=== PATIENT | female | born 1960 | race Caucasian/White ===

== ENCOUNTER 2023-11-16 11:13 | Outpatient (CLI) | payer BC, SELFPAY | END 2023-11-16 11:14 | disposition home or self-care (01) | LOC: AMB 11-19 06:00 | PROVIDERS: Visit Provider Emergency Medicine | DX: S89.91XA Unspecified injury of right lower leg, initial encounter (principal); W18.30XA Fall on same level, unspecified, initial encounter; Y92.000 Kitchen of unspecified non-institutional (private) residence as the place of occurrence of the external cause | CPT/HCPCS: A0998 ==

== ENCOUNTER 2024-04-06 13:00 | Outpatient (RCR) | payer OTHER, BC, SELFPAY | END 2024-08-04 23:59 | disposition home or self-care (01) | PROVIDERS: Visit Provider Orthopaedic Surgery | DX: Z98.890 Other specified postprocedural states (principal); Z87.81 Personal history of (healed) traumatic fracture; M25.561 Pain in right knee; M25.661 Stiffness of right knee, not elsewhere classified; Z51.89 Encounter for other specified aftercare | CPT/HCPCS: 97110; 97112; 97116; 97140; 97161; 97164; 97750 ==

== ENCOUNTER 2025-04-28 19:26 | Inpatient (IN) | payer BC, MEDICARE, SELFPAY ==
--- OUTSIDE RECORDS SUMMARY | 2025-04-28 19:28 | XMS_ITS | Clinical Summary ---
Author Organization [facility] Address [address] [place] [id number] Care Team Providers Care Packaging Clerk Name Role Phone Ashish Cordon MD Primary Care Provider Allergies Active Allergy Reactions Criticality Noted Date Comments Egg *Unknown 09/08/2023 Medications durable medical equipment (DME)Indications: Closed nondisplaced comminuted fracture of right patella, initial encounter X-ROM POST-OP KNEE BRACE 1 Each 4 Active CaneIndications:S /P ORIF (open reduction internal fixation) fracture Narrow Base Quad Cane for home use. For 3-4 weeks. 1 Each 4 Active celecoxib (CeleBREX) 200 mg capsuleIndication s:S/P ORIF (open reduction internal fixation) fracture Take 1 Capsule (200 mg) by mouth two times daily with meals. 60 Capsule 2 4 Active durable medical equipment (DME)Indications: S/P ORIF (open reduction internal fixation) fracture Knee sleeve right knee 1 Each 4 Active durable medical equipment (DME)Indications: S/P ORIF (open reduction internal fixation) fracture Michael-Pull Lite, RT, XXL 1 Each 4 Active Active Problems Problem Noted Date Diagnosed Date Tobacco abuse 09/09/2023 Closed nondisplaced comminuted fracture of right patella 09/07/2023 Injury of right knee 09/07/2023 Immunizations Immunization Administration Dates Next Due COVID-19 vaccine (Access Closure 30mcg/0.3mL) P F, MDV 08/19/2020,07/29/2020 Influenza, IIV4 03/30/2021 Influenza, IIV4 (=>6mos) MDV 03/31/2020 Zoster (Shingrix-RZV, recombinant) 10/28/2023 Family History Medical History Relation Name Comments Psychiatric illness Father depressi on Anesthesia Problem No Family History Relation Name Status Comments Father Social History Tobacco Use Types Packs/Day Years Used Date Smoking Tobacco: Some Days Cigarettes 0.2 10 Smokeless Tobacco: Never Tobacco Cessation:Ready to Q uit: No; Counseling Given: No Alcohol Use Standard Drinks/Week Comments Yes 0 (1 standard drink = 0.6 oz pur e alcohol) 4-5/week Social Connections Answer Date Recorded Do you often feel lonely or isolated from those around you? 0 10/28/2023 Financial Resource Strain Answer Date R ecorded Difficulty of Paying Living Expenses 3 10/28/2023 Difficulty of Paying Living Expenses Not on file 10/28/2023 Food Insecurity Answer Date Recorded Do you worry your food will run out before you are able to buy more? 1 10/28/2023 Transportation Needs Answer Date Record ed Does lack of transportation keep you from medica l appointments? 1 10/28/2023 Does lack of transportation keep you from work, meetings or getting things that you need? 1 10/28/2023 Housing Stability Answer Date Recorded What is your housing situation today? 1 10/28/2023 Utilities Answer Date Recorded Do you have trouble paying f or utilities (for example, heat, electricity, water, phone)? 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 Gender Identity Not on file Sexual Orientation Not on file Obstetrics History Para Term AB IAB SAB Ectopic Multiple Livin g Live Births 4 4 Date Outcome GA Total Labor Labor/2nd/3rd Weight Sex Type Anes PTL Gayatri A1 A5 Name Clin Para Para Para Para Last Filed Vital Signs Vital Sign Reading Time Taken Comments Blood Pressure 113/76 01/30/2024 10:23 AM CDT Pulse 94 01/30/2024 10:23 AM CDT Temperature 37.3 C (99.2 F) 09/13/2023 1:11 PM CDT Respiratory Rate 18 09/13/2023 2:30 PM CDT Oxygen Saturation 99% 01/30/2024 10:23 AM CDT Inhaled Oxygen Concentration - - Weight 81.2 kg (179 lb) 01/30/2024 10:23 AM CDT Height 172.7 cm (5' 8) 09/13/2023 9:36 AM CDT Body Mass Index 27.22 09/13/2023 9:36 AM CDT Plan of Treatment Health Maintenance Due Date Last Done Comments Tetanus booster 1969 Depression screening for age 12+ 1970 Hepatitis C screening for ag e 18-79 1976 Pneumococcal series for age 50+ (1 of 2 - PCV) 1977 Colonoscopy through age 75 2003 Lipids for age 45-75 2003 Mammogram for age 45-75 2003 DEXA/DXA scan for age 65+ 2023 Zoster (shingles) series for age 50+ (2 of 2) 12/23/2023 10/28/2023 BMI (ht and wt on same day) for age 18+ 09/08/2024 09/09/2023, 09/30/2016 Influenza Vaccine (#1) 2025 , 03/31/2020 RSV vaccine for adults or (1 - 1-dose 75+ series) 2033 Hepatitis B series for 19+ Aged Out N o longer eligible based on patient's age to complete this topic Medical Devices Implanted Type Area Retaining Room Cutter Device Identifier Shelf Expiration Date Model / Serial / Lot Patella Sutureplate Ii, Star 3mm Implanted:Qty: 1 on 09/13/2023 by Ramo Huerta MD at [facility] Right: Patella 02/24/2026 [id number] S / / [id number] Screw Bone 3.0x12mm Titnm Emi Compression Kreulock - [id number] Implanted:Qty: 2 on 09/13/2023 by Ramo Huerta MD at [facility] Right: Patella [employer] [id number] -12 / / Screw Bone 3.0x14mm Titnm Emi Compression Kreulock - [id number] Implanted:Qty: 4 on 09/13/2023 by Ramo Huerta MD at [facility] Right: Patella [employer] [id number]-[id number] -14 / / Screw Bone 3.0x16mm Titnm Emi Chel Lilly - [id number] Implanted:Qty: 3 on 09/13/2023 by Ramo Huerta MD at [facility] Right: Patella [employer] [id number] -16 / / Insurance [facility] Advance Directives * Full Code (Latest Code Status on File) Date Activated Date Inactivated Comments 09/13/2023 11:30 AM 09/13/2023 7:00 PM Question Answer Comments Code Status Discussion: Reviewed Preferences Care Teams Packaging Clerk Relationship Specialty Start Date End Date Ashish Cordon MD [address] [place] [address] PCP - General Family Practice 09/09/23
[2025-04-28 19:34] VITALS: BP 145/98; PULSE 86; RESP 16; TEMP 37; O2SAT 95; BMI 27.4
--- NOTE | 2025-04-28 19:54 | CRLHL7_ITS ---
For Patients: As a result of the Century Cures Act, medical imaging exams and procedure reports are released immediately into your electronic medical record. You may view this report before your referring provider. If you have questions, please contact your health care provider. INDICATION: Fall TECHNIQUE: Single view pelvis with AP and cross-table lateral views of the right hip. COMPARISONS: None available. FINDINGS: Femoral heads are well-seated in the acetabula. There is a subcapital femoral neck fracture of the right hip with probably high-riding distal femoral fracture component. Mild degenerative changes of the bilateral femoral acetabular joints. Right-sided soft tissue swelling. IMPRESSION: Subcapital femoral neck fracture of the right hip. Dictated by Lex Torres MD @ 04/28/2025 8:46:50 PM (Electronically Signed)
--- NOTE | 2025-04-28 20:07 | ED_ITS ---
HPI - General Adult General Chief complaint: Hip Injury/Pain Stated complaint: Right hip injury Time Seen by Provider: 04/28/25 19:50 Source: patient Mode of arrival: ambulatory Limitations: no limitations History of Present Illness HPI narrative: 65-year-old female coming in today complaining of right hip pain. Patient states that she was turning and some how she fell. Patient can not quite remember what happened but states that she could not walk afterwards. She states that I pulled a muscle?. Patient states that she was drinking today. Drinks during football games. Denies daily alcohol use. Takes no medications, is not on any blood thinners. Denies hitting her head or losing consciousness. States that she lives with her sister and another family member. Related Data Allergies Allergy/AdvReac Type Severity Reaction Status Date / Time No Known Drug Allergies Allergy Verified 04/28/25 19:37 Review of Systems Status of ROS: Reports: 10 or more systems reviewed and unremarkable except as noted in History and below Exam Narrative: Exam Narrative: Well-nourished well-developed patient in no acute distress. Acutely intoxicated. Patient smells heavily of alcohol, speech is slurred. Alert and oriented x3. Poor historian given her current state. Patient speaks in full sentences without needing to catch their breath. GCS is 15. Patient is speaking and breathing without difficulty. There is no obvious significant bleeding noted. HEENT: Normocephalic atraumatic. Pupils are equally round reactive to light. Extraocular muscles are intact. Conjunctivae are moist without any icterus noted. Moist mucous membranes. Posterior pharynx is normal. No trauma noted to the inside of the mouth. Neck is soft. Cardiovascular: Heart is regular rate and rhythm S1 and S2 are present without any murmurs. Lungs: Clear to auscultation bilaterally no wheezes rhonchi or rales are appreciated. Patient takes deep breaths without any discomfort. Patient has no tenderness to palpation of the anterior, lateral posterior chest wall. Abdomen: Soft and nontender nondistended with normal bowel sounds. Extremities: Bilateral lower extremities are without edema. Normal DP and PT pulses. Patient has tenderness over the anterior upper thigh. She does not lift that leg off the bed. Skin: Well perfused without any obvious rashes. Back: Normal appearance. Patient has no tenderness to palpation at the cervical, thoracic or lumbar spine. Patient has full range of motion at the neck with flexion, extension, side way bending and rotation without pain. Const: Vital Signs, click to edit/add: Vital Signs - 24 hr 04/28/25 19:34 Temperature 98.6 F Pulse Rate [Right Pulse Oximeter] 86 Respiratory Rate 16 Blood Pressure [Ri ght Upper Arm] 145/98 H Pulse Oximetry 95 Oxygen Delivery Me thod Room Air Course Course ED Course: Hip x-ray, read by me, shows a femoral neck fracture. Consulted with Alanis Powell, orthopedics, who is in agreement with admission and surgical management tomorrow. Discussed with Dr. Magana who accepts the patient for admission. Had a conversation with the patient's older sister who states that the patient drinks every weekend at least if not also sometimes during the week. Patient also smokes a pack of cigarettes every 4 days or so. I did ask the patient if she wanted a nicotine patch and she declined. Vital Signs Vital signs: Initial Vital Signs Temperature 98.6 F 04/28/25 19:34 Temperature Source Temporal Artery Scan 04/28/25 19:34 Pulse Rate 86 04/28/25 19:34 Pulse Rhythm Regular 04/28/25 19:34 Pulse Strength 3+ Normal 04/28/25 19:34 Respiratory Rate 16 04/28/25 19:34 Blood Pressure 145/98 H 04/28/25 19:34 Blood Pressure Mean 113 H 04/28/25 19:34 Blood Pressure Position Sitting 04/28/25 19:34 Pulse Oximetry 95 04/28/25 19:34 Oxygen Delivery Method Room Air 04/28/25 19:34 Vital Signs Temperature 98.6 F 04/28/25 19:34 Pulse Rate 86 04/28/25 19:34 Respiratory Rate 16 04/28/25 19:34 Blood Pressure 145/98 H 04/28/25 19:34 Pulse Oximetry 95 04/28/25 19:34 Oxygen Delivery Method Room Air 04/28/25 19:34 Temperature 98.6 F 04/28/25 19:34 Pulse Rate 86 04/28/25 19:34 Respiratory Rate 16 04/28/25 19:34 Blood Pressure 145/98 H 04/28/25 19:34 Pulse Oximetry 95 04/28/25 19:34 Oxygen Delivery Method Room Air 04/28/25 19:34 Medical Decision Making MDM Narrative Medical decision making narrative: 65-year-old female with probable chronic alcohol use disorder, presenting with a femoral neck fracture. Patient will be admitted for further management Imaging Data X-ray hip: Attestation: I have reviewed the pertinent imaging results. Radiologist's impression: TECHNIQUE: Single view pelvis with AP and cross-table lateral views of the right hip. COMPARISONS: None available. FINDINGS: Femoral heads are well-seated in the acetabula. There is a subcapital femoral neck fracture of the right hip with probably high- riding distal femoral fracture component. Mild degenerative changes of the bilateral femoral acetabular joints. Right-sided soft tissue swelling. IMPRESSION: Subcapital femoral neck fracture of the right hip. Discharge Plan Discharge Clinical Impression: Femoral neck fracture, Alcohol use disorder Patient Disposition: Admitted As Inpatient Condition: Stable
--- NOTE | 2025-04-28 20:38 | CRLHL7_ITS ---
For Patients: As a result of the Century Cures Act, medical imaging exams and procedure reports are released immediately into your electronic medical record. You may view this report before your referring provider. If you have questions, please contact your health care provider. INDICATION: Fall. TECHNIQUE: Chest portable AP supine. FINDINGS: Were allowing for the AP technique, the heart is normal in size. There is no pulmonary contusion or pneumothorax. The lungs are clear. The pulmonary vasculature and pleural surfaces appear normal. The bony thorax appears intact. IMPRESSION: Negative study. Dictated by Gabriel Fletcher MD @ 04/28/2025 9:04:55 PM (Electronically Signed)
[2025-04-28 21:19] VITALS: BP 130/87; PULSE 83; RESP 18; TEMP 36.9; O2SAT 94
[2025-04-28 21:22] LABS: Hematocrit* 42.9 % (33.0-51.0); Hemoglobin* 14.4 gm/dL (12.0-16.0); Immature Granulocytes Pct Auto 0.4 %; Mean Corpuscular HGB Conc 34 gm/dL (32-36); Mean Corpuscular Hemoglobin 38 pg (26-34); Mean Corpuscular Volume 113 fL (80-100); RDW Coefficient of Variation % 13.7 % (11.5-15.5); Red Blood Count* 3.80 m/uL (4.00-5.20); White Blood Count* 18.24 K/uL (4.50-11.00)
[2025-04-28 21:25] VITALS: BP 136/88; PULSE 78; RESP 18; TEMP 36.7; O2SAT 90
[2025-04-28 21:25] LABS: Immature Granulocytes Abs Auto 0.10 K/uL (0.00-0.30); Lymphocytes Absolute Auto 2.10 K/uL (0.90-2.90); Slide Review Reflex No
[2025-04-28 21:34] LABS: Albumin* 4.1 g/dL (3.3-5.0); Chloride* 103 mmol/L (96-114); Sodium* 140 mmol/L (135-149)
[2025-04-28 21:35] LABS: Potassium* 5.7 mmol/L (3.6-5.1)
[2025-04-28 21:37] LABS: Alanine Aminotransferase* 14 U/L (4-35); Alkaline Phosphatase* 82 U/L (40-150); Anion Gap 6 mEq/L (7-15); Aspartate Amino Transferase* 50 U/L (12-35); Bilirubin Direct* 0.3 mg/dL (0.0-0.5); Bilirubin Total* 0.3 mg/dL (0.1-1.5); Blood Urea Nitrogen* 4 mg/dL (7-30); Calcium* 8.8 mg/dL (8.4-10.6); Carbon Dioxide* 31 mmol/L (20-32); Creatinine* 0.6 mg/dL (0.5-1.5); Est. Creatinine Clearance* 55.07; Estimated Glomerular Filt Rate 98 ml/min; Glucose* 127 mg/dL (60-115); Total Protein* 7.2 g/dL (6.0-8.3)
[2025-04-28 21:45] LABS: Ethanol* 0.28 % (0.01-0.03)
--- NOTE | 2025-04-28 21:49 | PM.IMHP1 ---
Assessment and Plan Assessment and plan (1) Femoral neck fracture: Problem comment: - 04/28/2025: Right subcapital femoral neck fracture status post fall from standing position, suggesting underlying osteoporosis - emergency department physician spoke with orthopedic surgery team who indicates they will plan on bringing her to the operating room on 04/29/2025 if the patient is ready for surgery at that time - meanwhile will initiate analgesics and antiemetics p.r.n., NPO after midnight and treat with IV fluids, and await orthopedic surgery consultation - PT and OT consultation. Anticipate patient will need TCU services subsequent to hospitalization. As such have asked social media executive to assist with discharge disposition planning in addition to helping with the alcohol use disorder. Status: Acute (2) Alcohol intoxication: Problem comment: - 04/28/2025: Blood alcohol level 0.28 with patient coherent and talking suggesting tolerance and underlying alcohol use disorder - patient denies history of alcohol withdrawal symptoms, but family members believe the patient does have alcohol withdrawal symptoms that she self medicates with alcohol. - in-hospital will monitor and employ CIWA protocol as indicated, give a single dose of phenobarbital 260 mg IV, initiate gabapentin 300 mg p.o. b.i.d. to lower risk of alcohol withdrawal, initiate multivitamin, folate, thiamin Status: Acute (3) Alcohol use disorder: Problem comment: - 04/28/2025: Initiated discussion with patient regarding this diagnosis. Indicated that like many illnesses she did not cause herself to have this illness, but she obviously does suffer from this illness, and she needs to be the 1 to decide that she wants to further assess and treat this and manage this. I also indicated that we do not have a cure for this but we do have means of helping her help herself if she so desires. - social media executive consultation to assist with recommendations for assessment and treatment Status: Acute (4) Osteoporosis: Problem comment: - 04/28/2025: This is a presumptive diagnosis given that she fell from the standing position and sustained a major fracture to her hip. In-hospital will initiate intranasal calcitonin 200 IU alternating nostrils every other day for a total of 1 month only. Thereafter she will need to have outpatient follow-up with her primary care physician for additional diagnostic and interventional effort considerations. Status: Acute (5) Constipation: Problem comment: - 04/28/2025: Will initiate senna 1 tab p.o. b.i.d. in-hospital and monitor and adjust as warranted Status: Acute (6) Tobacco use disorder: Problem comment: - 04/28/2025: In-hospital will initiate nicotine transdermal patch therapy Status: Acute Plan 1. I reviewed my impression, plans, recommendations with the patient 2. I reviewed the same with the patient's sister, with the patient's permission 3. Answered their questions to their satisfaction 4. They are agreeable with above stated plans and recommendations 5. They understand that depending how the patient does overnight she may or may not be ready for surgery tomorrow Total Time Spent Total Time Spent: 80 minutes Hospitalist- H&P: HPI History of Present Illness Date Seen: 04/28/25 Chief complaint: Right hip injury Narrative: Hoda Blackmon is a 65 year old woman presents to the emergency department this afternoon at the behest of her sister after the patient experience right hip pain status post fall from standing state. Patient simply wanted to have help to get into her bed where she could rest. Her sister refused and said she had come in for assessment and finally the patient concurred. The patient binge drinks every weekend. 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 She claims she does not have school tomorrow, 04/29/2025, and thus she was drinking today as well. On weekends she might drink 4-5 glasses per day of vodka 7 and during the week she might drink a total of 10 glasses at most. Patient was watching a football game on television today and drinking alcohol. She stepped outside to smoke a cigarette. After smoking her cigarette she was pivoting to walk back in the house when her legs suddenly gave out and she fell to the ground. She felt the pain in her hip and was unable to bear weight although she tried to. The she dragged herself into the house. Later her sister came in she asked her sister to help her get to bed. This is when the sister refused and said she was going to bring her to the hospital emergency department. Review of Systems Status of ROS: Reports: 10 or more systems reviewed and unremarkable except as noted in History and below Narrative: No recent trauma, injury, travel. No recent fevers, rigors, diaphoresis. No recent illness. No recent blood loss of any sort. Does not take any medications prescribed or non-prescribed on a regular basis. Rarely takes Advil for aches and pains. Fractured her right patella over a year ago after a fall. Has been using more Advil off and on since then. Smokes 1-2 packs of cigarettes per week. Alcohol consumption as specified above. Denies use of any other street or recreational drugs. Since fracture of her right patella she believes she has lost maybe 15 lb total. She states her life is more sedentary since then. Usually has no limitations in her physical abilities. Denies dyspnea at rest, paroxysmal nocturnal dyspnea, orthopnea. Denies angina or anginal equivalent, syncope or near syncope, nausea, vomiting, abdominal pain. Denies dysuria, urgency, frequency, hematuria. Does have constipation often on. Lately she has had episodes of constipation and loose stools. [facility] Medical History Alcohol intoxication ?F10.929 - Alcohol use, unspecified with intoxication, unspecified (ICD-10) Tobacco use disorder ?F17.200 - Nicotine dependence, unspecified, uncomplicated (ICD-10) Right knee injury ?S89.91XA - Unspecified injury of right lower leg, initial encounter (ICD-10) Patellar fracture ?S82.009A - Unspecified fracture of unspecified patella, initial encounter for closed fracture (ICD-10) Social History Smoking Status: Current every day smoker What tobacco products do you use: cigarettes Smoking packs per day: 0.25 Smoking cigarettes per day: 5.0 Do you use any of these nicotine containing products: None How often do you have a drink containing alcohol: 2-3 times a week How many standard drinks containing alcohol do you have on a typical day: 3 or 4 How often do you have six or more drinks on one occasion: Monthly AUDIT-C Alcohol total score: 6 Non-prescribed substance use: denies use Meds Home Medications and Allergies Allergies Allergy/AdvReac Type Severity Reaction Status Date / Time No Known Drug Allergies Allergy Verified 04/28/25 19:37 Exam Narrative: Exam Narrative: Examine the patient in hospital emergency department. She is very hard of hearing. Vision is adequate. Friendly, articulate, cooperative. Smells strongly of alcohol. No icterus or jaundice or petechiae. No tremor, asterixis noted. Poor dentition. Dry buccal mucosa. Conjugate gaze. Neck supple. Midline trachea. No head and neck lymphadenopathy. No JVD, hepatojugular reflux, or carotid bruits. Lungs are clear to auscultation without wheezing, rhonchi, rales. Chest wall excursions are full. No CVA tenderness to thumping. Able to sit up on the exam table. No focal motor neurologic deficits. Heart tones with regular rhythm, normal S1-S2, without murmur, gallop, rub. PMI is not laterally displaced. Abdomen with active bowel sounds, soft, nontender. No rebound or guarding. No lower extremity edema. Palpable pulses upper and lower extremities. Right lower extremity shorter than the left lower extremity. Foot is externally rotated on the right compared to the left. Const: Vital Signs, click to edit/add: Vital Signs - 24 hr 04/28/25 19:34 04/28/25 21:19 Temperature 98.6 F 98.4 F Pulse Rate [Right Pulse Oximeter] 86 83 Respiratory Rate 16 18 Blood Pressure [Ri ght Upper Arm] 145/98 H 130/87 Pulse Oximetry 95 94 Oxygen Delivery Me thod Room Air Room Air Hospitalist - H&P: Result Labs Labs: Short CBC 04/28/25 Range/Units 21:02 WBC 18.24 H (4.50-11.00) K/uL Hgb 14.4 (12.0-16.0) gm/dL Hct 42.9 (33.0-51.0) % Plt Count 365 (140-440) K/uL BMP 04/28/25 21:02 Sodium 140 Potassium 5.7 H Chloride 103 Carbon Dioxide 31 BUN 4 L Creatinine 0.6 Glucose 127 H Calcium 8.8 Liver Function 04/28/25 Range/Units 21:02 Total Bilirubin 0.3 (0.1-1.5) mg/dL Direct Bilirubin 0.3 (0.0-0.5) mg/dL AST 50 H (12-35) U/L ALT 14 (4-35) U/L Alkaline Phosphatase 82 (40-150) U/L Albumin 4.1 (3.3-5.0) g/dL ECG ECG interpretation date: 04/28/25 Interpretation: Normal sinus rhythm. Imaging Chest x-ray: Attestation: I have reviewed the pertinent imaging results. Radiologist's impression: No acute abnormalities noted. Right hip x-ray: Attestation: I have reviewed the pertinent imaging results. Radiologist's impression: Right subcapital femoral neck fracture with impaction
[2025-04-28 22:03] VITALS: BMI 26.4; BMI 26.5
[2025-04-28] MEDS: MORPHINE 4 MG/ML INJ IVP ×2 (22:07→23:05)
[2025-04-28] MEDS: PHENobarbitaL 260 MG in 0.9 % SODIUM CHLORIDE 100 ml 100 ML 208 MG IVPB (22:52)
[2025-04-28 23:00] VITALS: BP 119/79; PULSE 70; RESP 16; TEMP 36.4; O2SAT 90; O2SAT 94
[2025-04-28] MEDS: SODIUM CHLORIDE 0.9 % (FLUSH) 10 ML SYRINGE 5 ML IVF (23:06)
[2025-04-29] VITALS (28 sets, daily range): BP systolic 93–146; BP diastolic 61–87; PULSE 68–92; RESP 12–20; TEMP 36.4–37.7; O2SAT 86–100
[2025-04-29] MEDS: LACTATED RINGERS 1000 ML 1,000 ML 100 ML IV ×2 (02:08→12:10)
[2025-04-29] MEDS: SODIUM CHLORIDE 0.9 % (FLUSH) 10 ML SYRINGE 5 ML IVF ×3 (02:11→22:03)
[2025-04-29 04:08] LABS: Appearance Urine Clear (Clear)
[2025-04-29 06:23] LABS: HCO3 VBG 29 mmol/L (21-28); Lactate* 1.7 mmol/L (0.5-1.9); PCO2 VBG 49 mmHG (40-50); PO2 VBG 62.9 mmHG (25-47); pH VBG 7.380 (7.32-7.43)
[2025-04-29 06:36] LABS: Hematocrit* 38.4 % (33.0-51.0); Hemoglobin* 12.9 gm/dL (12.0-16.0); Immature Granulocytes Abs Auto 0.01 K/uL (0.00-0.30); Immature Granulocytes Pct Auto 0.1 %; Lymphocytes Absolute Auto 2.16 K/uL (0.90-2.90); Mean Corpuscular HGB Conc 34 gm/dL (32-36); Mean Corpuscular Hemoglobin 38 pg (26-34); Mean Corpuscular Volume 113 fL (80-100); RDW Coefficient of Variation % 13.7 % (11.5-15.5); Red Blood Count* 3.41 m/uL (4.00-5.20); White Blood Count* 10.82 K/uL (4.50-11.00)
[2025-04-29 06:39] LABS: Slide Review Reflex No
[2025-04-29 06:46] LABS: Albumin* 3.6 g/dL (3.3-5.0); Chloride* 102 mmol/L (96-114); Potassium* 4.1 mmol/L (3.6-5.1); Sodium* 136 mmol/L (135-149)
[2025-04-29 06:49] LABS: Alanine Aminotransferase* 12 U/L (4-35); Alkaline Phosphatase* 69 U/L (40-150); Anion Gap 5 mEq/L (7-15); Aspartate Amino Transferase* 39 U/L (12-35); Bilirubin Total* 0.5 mg/dL (0.1-1.5); Blood Urea Nitrogen* 4 mg/dL (7-30); Calcium* 8.1 mg/dL (8.4-10.6); Carbon Dioxide* 29 mmol/L (20-32); Creatinine* 0.5 mg/dL (0.5-1.5); Est. Creatinine Clearance* 55.07; Estimated Glomerular Filt Rate 103 ml/min; Glucose* 91 mg/dL (60-115); Total Protein* 6.3 g/dL (6.0-8.3)
[2025-04-29] MEDS: MORPHINE 4 MG/ML INJ IVP ×2 (09:21→11:31)
--- NOTE | 2025-04-29 09:29 | W.PC.NUTR.NO ---
Nutrition Progress Note Progress Note Progress Note: RDN with nutrition screen related to positive skin risk score. Patient admitted for fall at home, resulting in right Femoral neck fracture. Current weight seems to be stable recently. Current diet is NPO in anticipation for surgery today. Will continue to monitor. No nutrition interventions at this time due to current diet order.
--- NOTE | 2025-04-29 11:26 | P.IMPN_ITS ---
Assessment and Plan Assessment and plan (1) Femoral neck fracture: Problem comment: - 04/28/2025: Right subcapital femoral neck fracture status post fall from standing position, suggesting underlying osteoporosis - emergency department physician spoke with orthopedic surgery team who indicates they will plan on bringing her to the operating room on 04/29/2025 if the patient is ready for surgery at that time - meanwhile will initiate analgesics and antiemetics p.r.n., NPO after midnight and treat with IV fluids, and await orthopedic surgery consultation - PT and OT consultation. Anticipate patient will need TCU services subsequent to hospitalization. As such have asked home health care social worker to assist with discharge disposition planning in addition to helping with the alcohol use disorder. Status: Acute (2) Alcohol intoxication: Problem comment: - 04/28/2025: Blood alcohol level 0.28 with patient coherent and talking suggesting tolerance and underlying alcohol use disorder - patient denies history of alcohol withdrawal symptoms, but family members believe the patient does have alcohol withdrawal symptoms that she self medicates with alcohol. - in-hospital will monitor and employ CIWA protocol as indicated, give a single dose of phenobarbital 260 mg IV, initiate gabapentin 300 mg p.o. b.i.d. to lower risk of alcohol withdrawal, initiate multivitamin, folate, thiamin Status: Acute (3) Acute hypoxic respiratory failure: Problem comment: -mild needing 1 liter/minute oxygen, likely secondary to medications opioid plus phenobarb. - Patient denies history of COPD or using any inhalers, she denies history of CHRISTINA or using CPAP. -No history of heart disease. -Pt is not tachycardic. -continue monitoring. Status: Acute (4) Osteoporosis: Problem comment: - 04/28/2025: This is a presumptive diagnosis given that she fell from the standing position and sustained a major fracture to her hip. In-hospital will initiate intranasal calcitonin 200 IU alternating nostrils every other day for a total of 1 month only. Thereafter she will need to have outpatient follow-up with her primary care physician for additional diagnostic and interventional effort considerations. Status: Acute (5) Constipation: Problem comment: - 04/28/2025: Will initiate senna 1 tab p.o. b.i.d. in-hospital and monitor and adjust as warranted Status: Acute (6) Alcohol use disorder: Problem comment: - 04/28/2025: Initiated discussion with patient regarding this diagnosis. Indicated that like many illnesses she did not cause herself to have this illness, but she obviously does suffer from this illness, and she needs to be the 1 to decide that she wants to further assess and treat this and manage this. I also indicated that we do not have a cure for this but we do have means of helping her help herself if she so desires. - home health care social worker consultation to assist with recommendations for assessment and treatment Status: Acute (7) Tobacco use disorder: Problem comment: - 04/28/2025: In-hospital will initiate nicotine transdermal patch therapy Status: Acute Total Time Spent Total Time Spent: Today I spent 50 minutes seeing the patient, reviewing Expanse and EPIC notes/diagnostics, discussing the care plan with our care time that includes social work, PT/OT, pharmacy, RT, residential and documenting my impressions and plan in the medical record. Subjective Date Seen: 04/29/25 Interval history: Patient was seen and examined at bedside today. She is pleasant her pain is controlled with medication. This AM, Patient used to be on 1 liter/minute oxygen because her O2 sats went down to high 80s. Patient denies history of COPD or using any inhalers, she denies history of CHRISTINA or using CPAP. No history of heart disease. Pt is not tachycardic. Exam Narrative: Exam Narrative: Physical exam GENERAL: Comfortable, no acute distress. HEAD AND NECK: Atraumatic, normocephalic CARDIOVASCULAR: RRR. Normal S1, S2. No murmurs. RESPIRATORY: Clear to auscultation B/L. Good air entry B/L. No wheezes or rhonchi. GASTROINTESTINAL: Not distended, not tender to palpation. NEUROLOGY: Alert, awake, oriented X 3. Normal speech. PSYCH: Normal mood, normal affect. Const: Vital Signs, click to edit/add: Vital Signs - 24 hr 04/28/25 19:34 04/28/25 21:19 04/28/25 21:25 Temperature 98.6 F 98.4 F 98.0 F Pulse Rate [Pulse Oximeter] 78 Pulse Rate [Right Pulse Oximeter] 86 83 Respiratory Rate 16 18 18 Blood Pressure [Ri ght Arm] 136/88 Blood Pressure [Ri ght Upper Arm] 145/98 H 130/87 Pulse Oximetry 95 94 90 Oxygen Delivery Me thod Room Air Room Air Room Air Oxygen Flow Rate 11/02/25 21:25 04/28/25 22:03 04/28/25 23:00 Temperature 98.0 F 97.6 F Pulse Rate [Pulse Oximeter] 78 70 Pulse Rate [Right Pulse Oximeter] Respiratory Rate 18 16 Blood Pressure [Ri ght Arm] 136/88 119/79 Blood Pressure [Ri ght Upper Arm] Pulse Oximetry 90 94 Oxygen Delivery Me thod Room Air Room Air Nasal Cannula Oxygen Flow Rate 2 04/28/25 23:00 04/29/25 00:00 04/29/25 01:00 Temperature Pulse Rate [Pulse Oximeter] 88 89 Pulse Rate [Right Pulse Oximeter] Respiratory Rate 16 14 16 Blood Pressure [Ri ght Arm] 105/65 100/62 Blood Pressure [Ri ght Upper Arm] Pulse Oximetry 90 90 90 Oxygen Delivery Me thod Nasal Cannula Room Air Nasal Cannula Oxygen Flow Rate 2 2 2 04/29/25 02:00 04/29/25 03:00 04/29/25 04:00 Temperature 97.8 F 97.9 F Pulse Rate [Pulse Oximeter] 82 89 89 Pulse Rate [Right Pulse Oximeter] Respiratory Rate 16 16 14 Blood Pressure [Ri ght Arm] 104/66 103/62 101/61 Blood Pressure [Ri ght Upper Arm] Pulse Oximetry 92 91 90 Oxygen Delivery Me thod Room Air Nasal Cannula Nasal Cannula Oxygen Flow Rate 1 1 04/29/25 05:00 04/29/25 06:00 04/29/25 07:00 Temperature 98.1 F Pulse Rate [Pulse Oximeter] 83 92 Pulse Rate [Right Pulse Oximeter] Respiratory Rate 16 16 20 Blood Pressure [Ri ght Arm] 108/63 131/87 Blood Pressure [Ri ght Upper Arm] Pulse Oximetry 88 90 93 Oxygen Delivery Me thod Nasal Cannula Room Air Oxygen Flow Rate 1 1 04/29/25 07:00 04/29/25 09:29 Temperature 98.6 F Pulse Rate [Pulse Oximeter] 88 Pulse Rate [Right Pulse Oximeter] Respiratory Rate 20 18 Blood Pressure [Ri ght Arm] 128/82 Blood Pressure [Ri ght Upper Arm] Pulse Oximetry 93 92 Oxygen Delivery Me thod Room Air Nasal Cannula Oxygen Flow Rate 1 Labs Labs: Laboratory Results - last 24 hr 04/28/25 04/29/25 04/29/25 21:02 04:03 05:33 WBC 18.24 H 10.82 RBC 3.80 L 3.41 L Hgb 14.4 12.9 Hct 42.9 38.4 MCV 113 H 113 H MCH 38 H 38 H MCHC 34 34 RDW Coeff of Jesus 13.7 13.7 Plt Count 365 334 Neut % (Auto) 83.5 H 73.1 H Lymph % (Auto) 11.6 L 20.0 [place] % (Auto) 4.1 6.4 Eos % (Auto) 0.2 0.2 Baso % (Auto) 0.2 0.2 Neut # (Auto) 15.20 H 7.90 H Lymph # (Auto) 2.10 2.16 [place] # (Auto) 0.70 0.70 Eos # (Auto) 0.00 0.02 Baso # (Auto) 0.00 0.02 Abs Immat Gran (auto) 0.10 0.01 Imm/Tot Granulo (auto) 0.4 0.1 VBG pH 7.380 VBG pCO2 49 VBG pO2 62.9 H VBG HCO3 29 H Sodium 140 136 Potassium 5.7 H 4.1 Chloride 103 102 Carbon Dioxide 31 29 Anion Gap 6 L 5 L BUN 4 L 4 L Creatinine 0.6 0.5 Estimated Creat Clear 55.07 55.07 Estimated GFR 98 103 Glucose 127 H 91 Lactate 1.7 Calcium 8.8 8.1 L Phosphorus 3.7 Magnesium 1.9 1.4 L Total Bilirubin 0.3 0.5 Direct Bilirubin 0.3 AST 50 H 39 H ALT 14 12 Alkaline Phosphatase 82 69 C-Reactive Protein 0.6 Total Protein 7.2 6.3 Albumin 4.1 3.6 TSH 1.460 Urine Color Yellow Urine Appearance Clear Urine pH 5.0 Ur Specific [place] 1.025 Urine Protein Negative Urine Glucose (UA) Negative Urine Ketones 1+ A Urine Blood 3+ A Urine Nitrite Negative Urine Bilirubin Negative Urine Urobilinogen 0.2 Ur Leukocyte Esterase Negative Urine RBC 5-10 A Urine WBC 0-2 Ur Squamous Epith Cells None Urine Bacteria None Ethyl Alcohol 0.28 H
--- NOTE | 2025-04-29 13:00 | RESP.RT ---
Pt seen while in bed, on 2L NC, SPO2 92%. Reported by charge nurse that she desaturated during the nigh and needed oxygen. At this time BBS clear, CXR as read by radiologist does not note any concerns. PT does smoke approximately a pack of cigarettes every few days. (per pt) She denies any signs of CHRISTINA, and has not been tested. VBG shows she was over oxygenated this AM. Will require aggressive pulmonary hygiene/IS and tolerating SPO2 88% or greater.
--- NOTE | 2025-04-29 14:15 | CRLHL7_ITS ---
For Patients: As a result of the Century Cures Act, medical imaging exams and procedure reports are released immediately into your electronic medical record. You may view this report before your referring provider. If you have questions, please contact your health care provider. HISTORY: Intraoperative. TECHNIQUE: Fluoroscopy provided intraoperatively. One intraoperative spot film. COMPARISON: 04/28/2025. FINDINGS: The single intraoperative spot film demonstrates an intact right hip hemiarthroplasty. IMPRESSION: 1. Intact right hip hemiarthroplasty. Dictated by Raul Moreno MD @ 04/30/2025 5:23:57 AM (Electronically Signed)
--- NOTE | 2025-04-29 14:19 | P.ORCN_ITS ---
History of Present Illness HPI Date Seen: 04/29/25 Consult date: 04/28/25 Chief complaint: Right hip injury Narrative: Hoda is a 65-year-old female. She sustained a fall from a standing height on 04/28/2025. She presented [facility]. X-rays were obtained revealed a displaced right femoral neck fracture. She was admitted overnight with the hospitalist team. Orthopedics was consulted to consider surgical fixation of the right proximal femur fracture History is notable for the following: Alcohol abuse including admission blood alcohol level of 0.28. She was coherent and talking appropriately suggesting some tolerance related to chronic abuse. Tobacco use through smoking cigarettes. Osteoporosis. She tells me that she was simply rising from a chair when her right leg gave out and caused her fall. She is not sure if the leg gave up because of fracture or if it was related to pain or stumbling or any other event. [facility] Medical History Alcohol intoxication ?F10.929 - Alcohol use, unspecified with intoxication, unspecified (ICD-10) Tobacco use disorder ?F17.200 - Nicotine dependence, unspecified, uncomplicated (ICD-10) Right knee injury ?S89.91XA - Unspecified injury of right lower leg, initial encounter (ICD-10) Patellar fracture ?S82.009A - Unspecified fracture of unspecified patella, initial encounter for closed fracture (ICD-10) Social History What is your current living situation?: I presently have a place to live Problems where you live: no known problems In the past 12 months, utilities in danger of being shut off: no In past 12 months, lack of transportation kept you from medical appts, meetings, work, or getting things needed for daily living: no In the past 12 mos, have been you worried that your food would run out before you had money to buy more?: never true In the past 12 mos, the food you bought just didn't last and you didn't have money to buy more?: never true Smoking Status: Current some day smoker What tobacco products do you use: cigarettes Smoking packs per day: 0.25 Smoking cigarettes per day: 5.0 Do you use any of these nicotine containing products: None Second hand tobacco smoke exposure: Yes How often do you have a drink containing alcohol: 4 or more times a week Alcohol type: hard liquor Alcohol type details: Pt reports drinking 3-4 glasses of half vodka and half sprite per week, family states take what she tells you and double or triple that number, Once she gets home from work she has drinks and all throughout the day during weekends. How many standard drinks containing alcohol do you have on a typical day: 5 or 6 How often do you have six or more drinks on one occasion: Daily or almost daily AUDIT-C Alcohol total score: 10 Non-prescribed substance use: denies use Caffeine: Yes (Sprite with her vodka) How often does anyone, including family, friends and others, physically hurt you : never How often does anyone, including family, friends and others, insult or talk down to you: never How often does anyone, including family, friends and others, threaten you with harm: never How often does anyone, including family, friends and others, scream or curse at you: never Meds Home Medications and Allergies Allergies Allergy/AdvReac Type Severity Reaction Status Date / Time No Known Drug Allergies Allergy Verified 04/28/25 19:37 Ortho Exam Narrative Exam Narrative: She is alert and orient x3. Cooperative with the exam. Lying supine on hospital bed. Multiple family members present in the. Right hip exam shows no erythema, induration, or cutaneous changes. Pain but the right hip with any hip or knee range of motion. Neurologic intact in the superficial and deep peroneal as well as plantar distribution to sensory light touch and motor function. 2+ DP and PT pulse. Strength instability testing about the hip deferred for obvious reason. Gait and station also deferred. Const Vital Signs, click to edit/add: Vital Signs - 24 hr 04/28/25 19:34 04/28/25 21:19 04/28/25 21:25 Temperature 98.6 F 98.4 F 98.0 F Pulse Rate [Pulse Oximeter] 78 Pulse Rate [Right Pulse Oximeter] 86 83 Respiratory Rate 16 18 18 Blood Pressure [Right Arm] 136/88 Blood Pressure [Right Upper Arm] 145/98 H 130/87 Pulse Oximetry 95 94 90 Oxygen Delivery Method Room Air Room Air Room Air Oxygen Flow Rate 04/28/25 21:25 04/28/25 22:03 04/28/25 23:00 Temperature 98.0 F 97.6 F Pulse Rate [Pulse Oximeter] 78 70 Pulse Rate [Right Pulse Oximeter] Respiratory Rate 18 16 Blood Pressure [Right Arm] 136/88 119/79 Blood Pressure [Right Upper Arm] Pulse Oximetry 90 94 Oxygen Delivery Method Room Air Room Air Nasal Cannula Oxygen Flow Rate 2 04/28/25 23:00 04/29/25 00:00 04/29/25 01:00 Temperature Pulse Rate [Pulse Oximeter] 88 89 Pulse Rate [Right Pulse Oximeter] Respiratory Rate 16 14 16 Blood Pressure [Right Arm] 105/65 100/62 Blood Pressure [Right Upper Arm] Pulse Oximetry 90 90 90 Oxygen Delivery Method Nasal Cannula Room Air Nasal Cannula Oxygen Flow Rate 2 2 2 04/29/25 02:00 04/29/25 03:00 04/29/25 04:00 Temperature 97.8 F 97.9 F Pulse Rate [Pulse Oximeter] 82 89 89 Pulse Rate [Right Pulse Oximeter] Respiratory Rate 16 16 14 Blood Pressure [Right Arm] 104/66 103/62 101/61 Blood Pressure [Right Upper Arm] Pulse Oximetry 92 91 90 Oxygen Delivery Method Room Air Nasal Cannula Nasal Cannula Oxygen Flow Rate 1 1 04/29/25 05:00 04/29/25 06:00 04/29/25 07:00 Temperature 98.1 F Pulse Rate [Pulse Oximeter] 83 92 Pulse Rate [Right Pulse Oximeter] Respiratory Rate 16 16 20 Blood Pressure [Right Arm] 108/63 131/87 Blood Pressure [Right Upper Arm] Pulse Oximetry 88 90 93 Oxygen Delivery Method Nasal Cannula Room Air Oxygen Flow Rate 1 1 04/29/25 07:00 04/29/25 09:29 04/29/25 10:00 Temperature 98.6 F 99.1 F Pulse Rate [Pulse Oximeter] 88 89 Pulse Rate [Right Pulse Oximeter] Respiratory Rate 20 18 20 Blood Pressure [Right Arm] 128/82 135/78 Blood Pressure [Right Upper Arm] Pulse Oximetry 93 92 92 Oxygen Delivery Method Room Air Nasal Cannula Room Air Oxygen Flow Rate 1 04/29/25 11:00 Temperature 99.1 F Pulse Rate [Pulse Oximeter] 89 Pulse Rate [Right Pulse Oximeter] Respiratory Rate 20 Blood Pressure [Right Arm] 135/78 Blood Pressure [Right Upper Arm] Pulse Oximetry 92 Oxygen Delivery Method Room Air Oxygen Flow Rate Results Labs Labs: Laboratory Results - last 48 hr 04/28/25 04/29/25 04/29/25 21:02 04:03 05:33 WBC 18.24 H 10.82 RBC 3.80 L 3.41 L Hgb 14.4 12.9 Hct 42.9 38.4 MCV 113 H 113 H MCH 38 H 38 H MCHC 34 34 RDW Coeff of Jesus 13.7 13.7 Plt Count 365 334 Neut % (Auto) 83.5 H 73.1 H Lymph % (Auto) 11.6 L 20.0 [place] % (Auto) 4.1 6.4 Eos % (Auto) 0.2 0.2 Baso % (Auto) 0.2 0.2 Neut # (Auto) 15.20 H 7.90 H Lymph # (Auto) 2.10 2.16 [place] # (Auto) 0.70 0.70 Eos # (Auto) 0.00 0.02 Baso # (Auto) 0.00 0.02 Abs Immat Gran (auto) 0.10 0.01 Imm/Tot Granulo (auto) 0.4 0.1 VBG pH 7.380 VBG pCO2 49 VBG pO2 62.9 H VBG HCO3 29 H Sodium 140 136 Potassium 5.7 H 4.1 Chloride 103 102 Carbon Dioxide 31 29 Anion Gap 6 L 5 L BUN 4 L 4 L Creatinine 0.6 0.5 Estimated Creat Clear 55.07 55.07 Estimated GFR 98 103 Glucose 127 H 91 Lactate 1.7 Calcium 8.8 8.1 L Phosphorus 3.7 Magnesium 1.9 1.4 L Total Bilirubin 0.3 0.5 Direct Bilirubin 0.3 AST 50 H 39 H ALT 14 12 Alkaline Phosphatase 82 69 C-Reactive Protein 0.6 Total Protein 7.2 6.3 Albumin 4.1 3.6 TSH 1.460 Urine Color Yellow Urine Appearance Clear Urine pH 5.0 Ur Specific [place] 1.025 Urine Protein Negative Urine Glucose (UA) Negative Urine Ketones 1+ A Urine Blood 3+ A Urine Nitrite Negative Urine Bilirubin Negative Urine Urobilinogen 0.2 Ur Leukocyte Esterase Negative Urine RBC 5-10 A Urine WBC 0-2 Ur Squamous Epith Cells None Urine Bacteria None Ethyl Alcohol 0.28 H Diagnostic results Additional Comments: Hemoglobin 14.4 Hematocrit 42.9. Platelets 365 Albumin 4.1. AP pelvis and AP and cross-table lateral views of the right hip from [facility] dated 04/28/2025 were ordered by different provider and reviewed by me. This demonstrates a displaced right femoral neck fracture. The femur is externally rotated, shortened, and a Veress male angulated position due to the femoral neck fracture. Well-preserved hip joint space otherwise. Assessment and Plan Assessment and plan (1) Femoral neck fracture: Problem comment: - 04/28/2025: Right subcapital femoral neck fracture status post fall from standing position, suggesting underlying osteoporosis - emergency department physician spoke with orthopedic surgery team who indicates they will plan on bringing her to the operating room on 04/29/2025 if the patient is ready for surgery at that time - meanwhile will initiate analgesics and antiemetics p.r.n., NPO after midnight and treat with IV fluids, and await orthopedic surgery consultation - PT and OT consultation. Anticipate patient will need TCU services subsequent to hospitalization. As such have asked social studies teacher to assist with discharge disposition planning in addition to helping with the alcohol use disorder. Status: Acute Total time spent: Total time spent is greater than 50% in coordination of care (as documented) at patient's floor/unit and/or counseling patient: (2) Alcohol intoxication: Problem comment: - 04/28/2025: Blood alcohol level 0.28 with patient coherent and talking suggesting tolerance and underlying alcohol use disorder - patient denies history of alcohol withdrawal symptoms, but family members believe the patient does have alcohol withdrawal symptoms that she self medicates with alcohol. - in-hospital will monitor and employ CIWA protocol as indicated, give a single dose of phenobarbital 260 mg IV, initiate gabapentin 300 mg p.o. b.i.d. to lower risk of alcohol withdrawal, initiate multivitamin, folate, thiamin Status: Acute Total time spent: Total time spent is greater than 50% in coordination of care (as documented) at patient's floor/unit and/or counseling patient: (3) Acute hypoxic respiratory failure: Problem comment: -mild needing 1 liter/minute oxygen, likely secondary to medications opioid plus phenobarb. - Patient denies history of COPD or using any inhalers, she denies history of CHRISTINA or using CPAP. -No history of heart disease. -Pt is not tachycardic. -continue monitoring. Status: Acute Total time spent: Total time spent is greater than 50% in coordination of care (as documented) at patient's floor/unit and/or counseling patient: (4) Osteoporosis: Problem comment: - 04/28/2025: This is a presumptive diagnosis given that she fell from the standing position and sustained a major fracture to her hip. In-hospital will initiate intranasal calcitonin 200 IU alternating nostrils every other day for a total of 1 month only. Thereafter she will need to have outpatient follow-up with her primary care physician for additional diagnostic and interventional effort considerations. Status: Acute Total time spent: Total time spent is greater than 50% in coordination of care (as documented) at patient's floor/unit and/or counseling patient: (5) Constipation: Problem comment: - 04/28/2025: Will initiate senna 1 tab p.o. b.i.d. in-hospital and monitor and adjust as warranted Status: Acute Total time spent: Total time spent is greater than 50% in coordination of care (as documented) at patient's floor/unit and/or counseling patient: (6) Alcohol use disorder: Problem comment: - 04/28/2025: Initiated discussion with patient regarding this diagnosis. Indicated that like many illnesses she did not cause herself to have this illness, but she obviously does suffer from this illness, and she needs to be the 1 to decide that she wants to further assess and treat this and manage this. I also indicated that we do not have a cure for this but we do have means of helping her help herself if she so desires. - social studies teacher consultation to assist with recommendations for assessment and treatment Status: Acute Total time spent: Total time spent is greater than 50% in coordination of care (as documented) at patient's floor/unit and/or counseling patient: (7) Tobacco use disorder: Problem comment: - 04/28/2025: In-hospital will initiate nicotine transdermal patch therapy Status: Acute Total time spent: Total time spent is greater than 50% in coordination of care (as documented) at patient's floor/unit and/or counseling patient: Plan It was helpful to review her radiographs and correlate this with her clinical picture. Indeed, the displaced right femoral neck fracture is worthy of surgical fixation via a right hip bipolar hemiarthroplasty. In addition, we did discuss quite candidly the risks of surgery given her alcohol abuse, tobacco use, and osteoporosis. This includes local risks (e.g. Infection, wound healing issues, aseptic loosening, instability, fracture) as well as systemic risks (e.g. VTE, [place], stroke). She states understanding. Indeed she would like to proceed with surgery. This would be on 04/29/2025. Right hip bipolar hemiarthroplasty. Following the procedure, I do anticipate weight bear as tolerated right lower extremity. Walker ambulation assistance. I would anticipate she will need at least 1 more overnight stay if not longer depending on how she is recovering medically. Given her alcohol abuse, she will be at risk for delirium tremens. I have been able coordinate care with the hospitalist team (they are already prepared for/anticipating alcohol dependence issues) along with the anesthesia team.
--- NOTE | 2025-04-29 14:50 | P.NB_ITS ---
Nerve Block Nerve Block Time Seen by Provider: 14:40 Date Seen: 04/29/25 Type of block requested by surgeon for post-operative analgesia: MURIEL/LFCN Side: right Time out performed: Yes Verification of patient name: Yes Verification of date of : Yes Site marking: site marked Name of person performing procedure: Bartolo Continuous monitoring Was continuous monitoring of O2 sat, B/P, cardiac/vascular sonographer, recorded every 15 minutes?: Yes Procedure Checklist: sterile prep, needles and gloves Ultrasound guided. Images saved: Yes Medications given in 5ml increments after negative aspiration: Ropivicaine %: 0.5 mL: 30 Needle gauge: 20 Precedex (mcg): 25 Patient tolerated procedure well: Yes Additional comments: Needle noted below psoas tendon needle noted adjacent to LFCN Block Charges Block Charge (with Pro Fee): Other Periph Nerve Block Use of Ultrasound Machine for Block: Yes- US Guidance/pain block
--- NOTE | 2025-04-29 14:50 | P.ANES_ITS ---
Anesthesia Charges Start Date/Time Anesthesia Start Date: 04/29/25 Anesthesia Start Time: 14:13 Stop Date/Time Anesthesia Stop Date: 04/29/25 Anesthesia Stop Time: 17:01 Summary Emergency: ANISHA Coding CPT Codes CPT Codes: ANESTH SURGERY OF FEMUR - 64520 ([id number]) P3 - PATIENT W/SEVERE SYS DISEASE, QK - SHELVING SUPERVISOR 2-4 CNCRNT ANES PROC, QX - MANUFACTURING LABORER SVC W/ MD MED DIRECTION Additional Codes: Summary - Emergency: ANISHA ([id number])
--- NOTE | 2025-04-29 14:50 | W.ANESCHARGE ---
Anesthesia Charges Start Date/Time Anesthesia Start Date: 04/29/25 Anesthesia Start Time: 14:13 Stop Date/Time Anesthesia Stop Date: 04/29/25 Anesthesia Stop Time: 17:01 Summary Emergency: ANISHA Coding CPT Codes CPT Codes: ANESTH SURGERY OF FEMUR - 65219 ([id number]) P3 - PATIENT W/SEVERE SYS DISEASE, QK - UNDERWEAR WELTER 2-4 CNCRNT ANES PROC, QX - AGRICULTURAL REAL ESTATE AGENT SVC W/ MD MED DIRECTION Additional Codes: Summary - Emergency: ANISHA ([id number])
[2025-04-29] MEDS: TRANEXAMIC ACID 100 MG/ML INJ 1000 MG IV (15:02)
--- NOTE | 2025-04-29 15:21 | SUR.OPER ---
PATIENT QUESTIONS ANSWERED SATISFACTORILY PREOPERATIVELY.? PATIENT BROUGHT TO OR #2 PER CART.? Patient positioned supine on OR #2 bed.? The perioperative?team supported arms bilaterally on arm boards.? Final approval of positioning by surgeon.
--- NOTE | 2025-04-29 15:42 | PC.NURSE ---
End of shift [id number] - Pt alert, oriented, cooperative. Not up from bed during shift per MD order. Ross noted to be patent and draining. Pt tolerating O2 via nasal cannula at 1L to maintain O2 saturation per MD order and NPO diet. Pt reported pain in R hip as 5-10/10 with increased pain from reported muscle spasms. Given medication per MAR with pt reporting improved comfort. Pt family updated. To OR at approximately 1415.
[2025-04-29] MEDS: LACTATED RINGERS 1000 ML 1,000 ML 125 ML IV (15:50)
--- NOTE | 2025-04-29 15:57 | P.ANES_ITS ---
Anesthesia Charges Start Date/Time Anesthesia Start Date: 04/29/25 Anesthesia Start Time: 14:13 Stop Date/Time Anesthesia Stop Date: 04/29/25 Anesthesia Stop Time: 17:01 Summary Emergency: MECHANICAL APPRENTICE Coding CPT Codes CPT Codes: ANESTH SURGERY OF FEMUR - 82240 ([id number]) P3 - PATIENT W/SEVERE SYS DISEASE, QK - HEAVY TRUCK DRIVER 2-4 CNCRNT ANES PROC, QX - MECHANICAL APPRENTICE SVC W/ MD MED DIRECTION Additional Codes: Summary - Emergency: MECHANICAL APPRENTICE ([id number])
--- NOTE | 2025-04-29 15:57 | W.ANESCHARGE ---
Anesthesia Charges Start Date/Time Anesthesia Start Date: 04/29/25 Anesthesia Start Time: 14:13 Stop Date/Time Anesthesia Stop Date: 04/29/25 Anesthesia Stop Time: 17:01 Summary Emergency: COLLOID MILL OPERATOR Coding CPT Codes CPT Codes: ANESTH SURGERY OF FEMUR - 58909 ([id number]) P3 - PATIENT W/SEVERE SYS DISEASE, QK - PRO SHOP ATTENDANT 2-4 CNCRNT ANES PROC, QX - COLLOID MILL OPERATOR SVC W/ MD MED DIRECTION Additional Codes: Summary - Emergency: COLLOID MILL OPERATOR ([id number])
--- NOTE | 2025-04-29 16:09 | P.ORPRC_ITS ---
Procedure Note Date of procedure: 04/29/25 Procedure: PREOPERATIVE DIAGNOSIS: 1. Right femoral neck fracture, displaced POSTOPERATIVE DIAGNOSIS: 1. Right femoral neck fracture, displaced PROCEDURE: 1. Right hip bipolar hemiarthroplasty, anterior approach 2. Intraoperative fluoroscopy interpreted by Ravi Bernstein M.D. for intraoperative evaluation of hip hemiarthroplasty implant positioning and leg length/offset evaluation. Fluoroscopy time was 23.7 seconds. SURGEON: Ravi Bernstein MD. CHLORINE CELL TENDER: Americo Pitts PA-C; MARGAUX Teixeira - Of note, skilled assistants were critical for this case to aid in patient positioning, tissue retraction, limb manipulation/positioning, and closure. ANESTHESIA: Spinal anesthetic EBL: 300 ml IMPLANTS: DePuy J&J uncemented right hip bipolar hemiarthroplasty Femoral Actis standard offset stem, size 7 Bipolar head with 28 mm inner diameter metal ball (+8.5) Polyethylene interface and 47 mm outer metal shell. COMPLICATIONS: None evident INDICATIONS: The patient is a pleasant 65-year-old female who initially sustained a right hip injury recently after a fall from a standing height falling onto the affected side. This resulted in a displaced femoral neck fracture. Given previous ambulatory status and current pain for the patient along with dysfunction, surgery is indicated for a hip hemiarthroplasty. FINDINGS: Displaced right femoral neck fracture. Well-preserved articular cartilage within the acetabulum. Hemarthrosis encountered upon entering the joint capsule. DESCRIPTION OF PROCEDURE: Following a thorough discussion of risks, benefits, and alternatives consent was obtained and the right hip was marked. The patient was brought to the operating room and placed supine on the operating table. Induction of anesthesia was undertaken. 1 g IV Ancef and 1 g tranexamic acid was administered within 1 hr of incision preoperatively. Proper time-out was performed identifying proper patient, site, procedure. The operative extremity was prepped and draped in the appropriate sterile fashion using ChloraPrep after the patient was positioned on the Tebbetts table with head in neutral alignment and all bony prominences well padded. A longitudinal incision was made starting approximately 1 cm distal to the ASIS, and 2-3 cm lateral. The incision was extended distally aiming toward the fibular head. Sharp incision through skin and bovie cautery through the subcutaneous tissue allowed identification of the TFL fascia. This was sharply divided, and the fascia bluntly released from the muscle fibers as we dissected medial. Upon coming to the medial border, we were able to retract the TFL laterally, and penetrated the deeper fascia and identify the crossing circumflex vessels. These were ligated/cauterized. The rectus was elevated from the capsule, and retractors placed laterally and medially along the femoral neck to help with visualization of the capsule. We then performed an inverted T capsulotomy. The capsule was tagged for later repair. Retractors were placed inside the capsule. The femoral neck was visualized after releasing medially down to the lesser trochanter, along the saddle laterally, and approaching the acetabulum. The femoral neck cut was freshened with a sagittal saw. The head was removed in a single piece, and sized. The acetabulum was inspected and found to be in excellent condition with healthy articular cartilage. Any remaining bony fracture fragments were removed. The ligamentum was excised. Attention was turned to the femoral preparation. The limb was extended, externally rotated, and adducted. The posteromedial capsule was released, as retractors were placed allowing excellent access to the proximal femur. Initially a punch box tender was utilized, then a canal finder, followed by a rasp and sequentially larger broaches. We broached up to the size noted above and found it to have excellent rotational control. Various head/neck combinations were trialed with a goal of matching the contralateral limbs leg length and offset, as confirmed with intraoperative fluoroscopy, in addition to achieving appropriate stability. Trial implants were removed, the real femoral stem inserted, as was the appropriate head(s). After reducing, the leg was placed through range of motion and stability was confirmed in various directions and with toggle/traction of the femoral component. Closure of the capsule was performed with #1 PDS. Bleeding was confirmed to be controlled at this stage, and the TFL fascia was closed with #0 strata fix. Subcutaneous, and subcuticular closure was performed with 2-0 Stratafix and 4-0 Stratafix, respectively. Dressings were applied, and the patient was awoken from anesthesia and transferred the PACU in stable condition. Skilled assistants were critical for this case to aid in patient positioning, tissue retraction, acetabular and proximal femoral exposure, limb manipulation/positioning, dislocation/relocation, patient safety, and closure. PLAN: 1. Weight bear as tolerated operative extremity. 2. 23 hr perioperative antibiotics. 3. Ice. 4. PT/OT consults for ambulation assistance/mobility education. 5. Social work consult for discharge planning. 6. DVT prophylaxis with at SCDs and Xarelto x5 days followed by aspirin for a total of 1 month.
[2025-04-29] MEDS: MAGNESIUM IV 2 GM/50 ML PIGGYBACK IVPB (18:33)
[2025-04-29] MEDS: ACETAMINOPHEN 325 MG TABLET 650 MG PO (22:01)
[2025-04-29] MEDS: CEFAZOLIN 2 GM in 0.9 % SODIUM CHLORIDE Mini-bag 100 ML IVPB (22:01)
[2025-04-29] MEDS: SENNOSIDES 1 TAB TABLET 2 TAB PO (22:02)
[2025-04-29] MEDS: GABAPENTIN 300 MG CAPSULE PO (22:02)
[2025-04-29] MEDS: THIAMINE 100 MG TABLET 250 MG PO (22:16)
[2025-04-29] MEDS: LIDOCAINE 5% PATCH 1 PATCH TRANSDERMA (22:52)
[2025-04-29] MEDS: CALCITONIN SALMON NASAL SPRAY 200 UNIT 1 SPRAY NOSTRIL-B (22:53)
--- NOTE | 2025-04-29 23:38 | PC.NURSE ---
Pt returned to floor at 1742, VSS, pain reported 4-810. Managed with prn pain meds. Pt repos q2hr and prn. Assist of 1 w/walker and gait belt. Pt advanced to regular diet, tolerated. Pt in bed at this time
[2025-04-30 00:17] VITALS: RESP 16; O2SAT 90
[2025-04-30 03:20] VITALS: BP 121/75; PULSE 80; RESP 18; TEMP 36.8; O2SAT 91
[2025-04-30 03:21] VITALS: BP 121/75; PULSE 80; RESP 18; TEMP 36.8; O2SAT 91
[2025-04-30] MEDS: CEFAZOLIN 2 GM in 0.9 % SODIUM CHLORIDE Mini-bag 100 ML IVPB (04:32)
[2025-04-30 06:22] LABS: Hematocrit* 35.1 % (33.0-51.0); Hemoglobin* 11.8 gm/dL (12.0-16.0); Mean Corpuscular HGB Conc 34 gm/dL (32-36); Mean Corpuscular Hemoglobin 38 pg (26-34); Mean Corpuscular Volume 114 fL (80-100); Red Blood Count* 3.08 m/uL (4.00-5.20); White Blood Count* 9.68 K/uL (4.50-11.00)
[2025-04-30 06:23] LABS: Slide Review Reflex No
[2025-04-30 06:31] LABS: Chloride* 97 mmol/L (96-114)
--- NOTE | 2025-04-30 06:31 | PC.NURSE ---
(Shift 23-07) Pt alert and oriented. Pt had complaints of pain ranging 0-5; see EMAR for intervention. Pt up with assist of one with walker and gait belt. Pt on a regular diet and tolerating well. Pt?s dressing is dry and intact. Pt?s CIWA scores have been 0.
[2025-04-30 06:32] LABS: Albumin* 3.4 g/dL (3.3-5.0); Potassium* 3.8 mmol/L (3.6-5.1); Sodium* 130 mmol/L (135-149)
[2025-04-30 06:35] LABS: Alanine Aminotransferase* 10 U/L (4-35); Alkaline Phosphatase* 83 U/L (40-150); Anion Gap 2 mEq/L (7-15); Aspartate Amino Transferase* 48 U/L (12-35); Bilirubin Total* 0.7 mg/dL (0.1-1.5); Blood Urea Nitrogen* 4 mg/dL (7-30); Calcium* 8.1 mg/dL (8.4-10.6); Carbon Dioxide* 31 mmol/L (20-32); Creatinine* 0.6 mg/dL (0.5-1.5); Est. Creatinine Clearance* 55.07; Estimated Glomerular Filt Rate 98 ml/min; Glucose* 105 mg/dL (60-115); Total Protein* 6.0 g/dL (6.0-8.3)
[2025-04-30 07:00] VITALS: BP 128/75; PULSE 91; RESP 16; TEMP 37.2; O2SAT 90
[2025-04-30] MEDS: SENNOSIDES 1 TAB TABLET 2 TAB PO (09:16)
[2025-04-30] MEDS: ACETAMINOPHEN 325 MG TABLET 650 MG PO (09:16)
[2025-04-30] MEDS: THIAMINE 100 MG TABLET 250 MG PO (09:16)
[2025-04-30] MEDS: FOLIC ACID 1 MG TABLET PO (09:16)
[2025-04-30] MEDS: MULTIVITAMIN/MINERALS 1 TABLET 1 TAB PO (09:17)
[2025-04-30] MEDS: GABAPENTIN 300 MG CAPSULE PO (09:17)
[2025-04-30] MEDS: RIVAROXABAN 10 MG TABLET PO (09:17)
[2025-04-30] MEDS: SODIUM CHLORIDE 0.9 % (FLUSH) 10 ML SYRINGE 5 ML IVF (09:17)
[2025-04-30 10:00] VITALS: BP 128/75; PULSE 91; RESP 16; TEMP 37.2; O2SAT 90
--- NOTE | 2025-04-30 11:24 | PM.DS1 ---
DS: Providers Provider Date Seen: 04/30/25 Date of admission: 04/28/25 21:29 Primary care physician: Ashish Cordon MD Admitting Clinician: David Marin MD Consults: 04/28/25 21:46 Consult to Occupational Therapy [CONS] Routine Comment: Reason(s) for OT Consult:: Evaluate and Treat Any Restrictions?:: No Restrictions Consult to Physical Therapy [CONS] Routine Comment: Reason(s) for PT Consult:: Evaluate and Treat Any Restrictions?:: No Restrictions Consult to Physician [CONS] Routine Comment: Consulting Provider: Taurus Lu Has provider been notified: Yes Consult to Respiratory Therapy [CONS] Routine Comment: Reason(s) for RT Consult:: Consult Consult to Manager Respiratory Care [CONS] Routine Comment: Reason for Consult:: Discharge Planning Needs Substance Abuse Screening 04/29/25 17:08 Consult to Occupational Therapy [CONS] Routine Comment: Reason(s) for OT Consult:: Evaluate and Treat Any Restrictions?:: See Comment Comment: evaluate and treat Consult to Physical Therapy [CONS] Routine Comment: Reason(s) for PT Consult:: Evaluate and Treat Any Restrictions?:: Wt Bearing as Tolerated Attending Physician on discharge: David Marin MD DS: Diagnosis Discharge Diagnosis (1) Femoral neck fracture: Status: Acute Problem details: - 04/28/2025: Right subcapital femoral neck fracture status post fall from standing position, suggesting underlying osteoporosis - emergency department physician spoke with orthopedic surgery team who indicates they will plan on bringing her to the operating room on 04/29/2025 if the patient is ready for surgery at that time - meanwhile will initiate analgesics and antiemetics p.r.n., NPO after midnight and treat with IV fluids, and await orthopedic surgery consultation - PT and OT consultation. - 04/30; pt doing well DC home w/ outpt PT/OT (2) Alcohol intoxication: Status: Acute Problem details: - 04/28/2025: Blood alcohol level 0.28 with patient coherent and talking suggesting tolerance and underlying alcohol use disorder - patient denies history of alcohol withdrawal symptoms, but family members believe the patient does have alcohol withdrawal symptoms that she self medicates with alcohol. - in-hospital will monitor and employ CIWA protocol as indicated, give a single dose of phenobarbital 260 mg IV, initiate gabapentin 300 mg p.o. b.i.d. to lower risk of alcohol withdrawal, initiate multivitamin, folate, thiamin (3) Acute hypoxic respiratory failure: Status: Resolved Problem details: -mild needing 1 liter/minute oxygen, likely secondary to medications opioid plus phenobarb. - Patient denies history of COPD or using any inhalers, she denies history of CHRISTINA or using CPAP. -No history of heart disease. -Pt is not tachycardic. -continue monitoring. (4) Osteoporosis: Status: Acute Problem details: - 04/28/2025: This is a presumptive diagnosis given that she fell from the standing position and sustained a major fracture to her hip. In-hospital will initiate intranasal calcitonin 200 IU alternating nostrils every other day for a total of 1 month only. Thereafter she will need to have outpatient follow-up with her primary care physician for additional diagnostic and interventional effort considerations. (5) Constipation: Status: Acute Problem details: - 04/28/2025: Will initiate senna 1 tab p.o. b.i.d. in-hospital and monitor and adjust as warranted (6) Alcohol use disorder: Status: Acute Problem details: - 04/28/2025: Initiated discussion with patient regarding this diagnosis. Indicated that like many illnesses she did not cause herself to have this illness, but she obviously does suffer from this illness, and she needs to be the 1 to decide that she wants to further assess and treat this and manage this. I also indicated that we do not have a cure for this but we do have means of helping her help herself if she so desires. - social group worker consultation to assist with recommendations for assessment and treatment (7) Tobacco use disorder: Status: Acute Problem details: - 04/28/2025: In-hospital will initiate nicotine transdermal patch therapy DS: Summary Hospital Course Hospital Course: pt presented w/ Right subcapital femoral neck fracture status post fall from standing position, suggesting underlying osteoporosis. orthopedic surgery team consulted for Sx. ORIF done. pt was found w/ Etoh intoxication, started CIWA. pt also had acute resp failure, mild, needing 1 liter/minute oxygen, likely secondary to medications opioid plus phenobarb, that resolved . PT and OT consultation. pt doing well and was DC home w/ outpt PT/OT. Time Spent with Patient Time attestation: Total time spent providing and/or coordinating discharge services: Exam Narrative: Exam Narrative: Physical exam GENERAL: Comfortable, no acute distress. HEAD AND NECK: Atraumatic, normocephalic CARDIOVASCULAR: RRR. Normal S1, S2. No murmurs. RESPIRATORY: Clear to auscultation B/L. Good air entry B/L. No wheezes or rhonchi. NEUROLOGY: Alert, awake, oriented X 3. Normal speech. PSYCH: Normal mood, normal affect. Const: Vital Signs, click to edit/add: Vital Signs - 24 hr 04/29/25 17:01 04/29/25 17:10 04/29/25 17:15 Temperature 99.8 F H Pulse Rate 77 75 74 Pulse Rate [Pulse Oximeter] Respiratory Rate 12 14 16 Blood Pressure 137/85 135/82 144/83 H Blood Pressure [Ri ght Arm] Pulse Oximetry 98 100 100 Oxygen Delivery Me thod OxyMask OxyMask OxyMask Oxygen Flow Rate 10 10 6 04/29/25 17:20 04/29/25 17:25 04/29/25 17:30 Temperature 99.5 F Pulse Rate 68 69 74 Pulse Rate [Pulse Oximeter] Respiratory Rate 16 16 14 Blood Pressure 137/83 138/81 128/81 Blood Pressure [Ri ght Arm] Pulse Oximetry 99 96 95 Oxygen Delivery Me thod Room Air Room Air Room Air Oxygen Flow Rate 04/29/25 17:35 04/29/25 17:42 04/29/25 18:00 Temperature 99.1 F 97.6 F 97.8 F Pulse Rate 72 Pulse Rate [Pulse Oximeter] 77 77 Respiratory Rate 14 18 20 Blood Pressure 140/79 H Blood Pressure [Ri ght Arm] 146/81 H 137/78 Pulse Oximetry 94 86 L 92 Oxygen Delivery Me thod Room Air Room Air Nasal Cannula Oxygen Flow Rate 1 04/29/25 18:15 04/29/25 18:19 04/29/25 18:30 Temperature 98.1 F Pulse Rate Pulse Rate [Pulse Oximeter] 73 81 Respiratory Rate 20 18 18 Blood Pressure Blood Pressure [Ri ght Arm] 121/74 105/63 Pulse Oximetry 94 92 94 Oxygen Delivery Me thod Nasal Cannula Nasal Cannula Nasal Cannula Oxygen Flow Rate 1 1 1 04/29/25 19:00 04/29/25 19:30 04/29/25 22:27 Temperature 97.9 F 97.9 F 97.9 F Pulse Rate Pulse Rate [Pulse Oximeter] 84 84 88 Respiratory Rate 16 16 18 Blood Pressure Blood Pressure [Ri ght Arm] 93/68 120/68 118/64 Pulse Oximetry 95 96 95 Oxygen Delivery Me thod Nasal Cannula Nasal Cannula Room Air Oxygen Flow Rate 1 1 04/29/25 23:35 04/29/25 23:37 04/30/25 00:17 Temperature 98.5 F 98.5 F Pulse Rate Pulse Rate [Pulse Oximeter] 71 71 Respiratory Rate 16 16 16 Blood Pressure Blood Pressure [Ri ght Arm] 103/61 103/61 Pulse Oximetry 90 90 90 Oxygen Delivery Me thod Room Air Room Air Room Air Oxygen Flow Rate 0 0 04/30/25 03:20 04/30/25 03:21 04/30/25 07:00 Temperature 98.3 F 98.3 F Pulse Rate Pulse Rate [Pulse Oximeter] 80 80 91 Respiratory Rate 18 18 16 Blood Pressure Blood Pressure [Ri ght Arm] 121/75 121/75 Pulse Oximetry 91 91 Oxygen Delivery Me thod Room Air Room Air Oxygen Flow Rate 0 04/30/25 07:00 04/30/25 07:00 04/30/25 10:00 Temperature 99.0 F 99.0 F Pulse Rate Pulse Rate [Pulse Oximeter] 91 91 Respiratory Rate 16 16 16 Blood Pressure Blood Pressure [Ri ght Arm] 128/75 128/75 Pulse Oximetry 90 90 90 Oxygen Delivery Me thod Room Air Room Air Room Air Oxygen Flow Rate 0 DS: Data Data Completed and Pending Labs on day of discharge: Labs from last 24 hours 04/30/25 05:27 WBC 9.68 RBC 3.08 L Hgb 11.8 L Hct 35.1 MCV 114 H MCH 38 H MCHC 34 Plt Count 281 Sodium 130 L Potassium 3.8 Chloride 97 Carbon Dioxide 31 Anion Gap 2 L BUN 4 L Creatinine 0.6 Estimated Creat Clear 55.07 Estimated GFR 98 Glucose 105 Calcium 8.1 L Magnesium 2.0 Total Bilirubin 0.7 AST 48 H ALT 10 Alkaline Phosphatase 83 Total Protein 6.0 Albumin 3.4 Discharge Plan Discharge Disposition: Home w/ Parent or Adult Date of Admission: 04/28/25 21:29 Attending Provider on Discharge: Indy Mackey Consulting Providers: Taurus Lu Primary Care Provider: Ashish Cordon Condition: Stable Anticipated Discharge Date/Time: 04/30/25 11:19 Discharge Medications: New sennosides-docusate sodium [Senna-S] 8.6-50 mg tablet 1 - 4 tab-cap PO BID PRN (Reason: constipation) Qty: 60 0RF Rx Instructions: Hold medication if experiencing loose stools. aspirin 81 mg tablet,delayed release (DR/EC) 81 mg PO BID Qty: 50 0RF Rx Instructions: Medication to help prevent blood clots postoperatively; take TWICE daily. oxycodone 5 mg tablet 2.5 - 5 mg PO Q4-6H MDD 6 PRN (Reason: pain) Qty: 42 0RF Rx Instructions: Take as needed for postop pain: 2.5mg mild pain, 5mg moderate-severe pain; wean as tolerated. rivaroxaban 10 mg tablet 10 mg PO DAILY Qty: 4 0RF Rx Instructions: Medication for deep vein clot prevention post surgery. Complete this medication before starting Aspirin. hydroxyzine pamoate 25 mg capsule 25 - 50 mg PO Q6H PRNQty: 60 0RF Discharge Orders: Discharge Order (Routine); Ordered 04/30/25 Ordered By: Indy Mackey Patient Education: Aspirin (By mouth), Laxative, Stimulant (By mouth), Oxycodone, Rapid Release (By mouth), Rivaroxaban (By mouth), Hip Fracture (GEN) Additional Instructions: -follow-up with your primary care physician within 1-2 weeks. Follow up with Orthopedics Clinic. -Xarelto for 5 days followed by aspirin for a total of 1 month for deep vein thrombosis prophylaxis as recommended by your surgeon. Activity Level: Activity as Tolerated, Weight Bearing as Tolerated, Use Cane and Use Walker Activity Detail: Wound: ? Do not remove original dressing; we will remove this at first postop visit. Only remove dressing if integrity is in question. ? No immersing wound in water; showering okay; light scrub with your hand and body soap, rinse, dab dry ? Sutures are under the skin, will dissolve; allow surgical glue to come off naturally; do not scrub the wound or apply ointments/lotions ? Call our office with any redness that streaks, excessive drainage from the wound, or wound gapping. Ice/Elevate: ? Ice as needed for swelling and discomfort; elevate extremity frequently above the heart. Motion/Exercise: ? Weight bear as tolerated operative extremity (walker/cane for ambulation assistance as needed) ? Per PT/OT. ? Straight leg raises daily: 1-2 sets of 10 reps Pain Medications: ? Oral narcotic as prescribed. Wean as tolerated. Additional acetaminophen as needed. Blood Clot Prevention (DVT): ? Medication: 5 days of xarelto, followed by 25 days 81 mg aspirin by mouth twice daily (1 month total treatment) Driving: ? Do not drive while taking narcotic pain medication ? Anticipate 4-6 weeks no driving if operative leg is driving leg Dental: ? No elective dental work for 3 months post-op. If there is an urgent/emergent dental need, contact our office for an antibiotic prescription. Smoking/Alcohol: ? Do not smoke; do no drink alcohol especially when taking postoperative oral narcotic medication Seek Care from you Primary Care Provider if you experience the following issues in the postoperative phase and beyond: ? Bacterial infections such as: pneumonia, bacterial skin infection (cellulitis), UTI, high fever, chills unrelated to the operative body part - call your primary care physician urgently for treatment in hopes to protect your health and the metal implant. Referrals: ? PT, OT per patient preference - evaluate & treat total hip arthroplasty protocol, anterior approach (gait training, ROM, ADLs) Vaccines: ? No vaccines until 4-6 weeks postop Follow-up: -please see orthopedic clinic [facility] in 1-2 weeks. If there are any acute concerns regarding your surgery, please call our orthopedic clinic ([phone]) Follow Up Appointments: Ashish Cordon MD [Primary Care Provider, Family Practice] - 05/10/25 1:15 pm Referral Note: [facility] for follow-up. Provider,Not a Local [Non-Staff, [facility]] Americo Pitts PA-C [Physician Forest Scientist, Orthopedics] - 05/09/25 11:00 am Referral Note: [facility] for hospital follow-up. [facility]
--- NOTE | 2025-04-30 11:28 | PC.SOCIAL ---
Addendum entered by ARMAAN Crow 04/30/25 13:55: Discharge planning: Pt did not want this worker to call her sister, Clarissa, with any discharge planning updates. This information was reported to the charge nurse. Social work to follow-up as needed. Original Note: Discharge planning: utility worker forge met with the pt who is being recommended to discharge home with support from her her son and sister, whom she lives with. Pt is moving very well and will not qualify for short-term rehab. The pt has another sister who lives in the [facility] who is concerned about the pt returning home because of her alcohol use and other habits. Pt's sister from [facility] is named, Clarissa, and she was also wanting the pt to go to a short-term rehab facility. Pt will not qualify for insurance coverage for a short-term rehab facility with how well she is moving. Pt states that she doesn't want to go to a short-term rehab facility and wants to go home at discharge from the hospital. Pt is her own decision maker and is allowed to make this choice. Social work to follow-up as needed.
--- NOTE | 2025-04-30 12:12 | P.ORPN_ITS ---
Subjective Subjective Date Seen: 04/30/25 Principal diagnosis: Status postop day 1, right bipolar hemiarthroplasty - anterior approach Interval history: Patient reports doing okay, though pain is bothering her right hip and thigh. No acute events over night. Pain managed with scheduled and PRN medications, ice. We made adjustments to her pain regimen last night to include Vistaril and lidocaine patch. DVT prophylaxis: Rivaroxaban for 4 days, followed by 81 mg aspirin by mouth twice daily 25 days, SCDs, walking. Denies fevers, chills, aches, N/V, CP, SOB/JASMINE, or lightheadedness. States that she lives with her son no steps in the house. She plans to recover from the surgery at home. Ortho Exam Narrative Exam Narrative: -Patient appears comfortable in bed; no apparent acute distress -Alert and oriented times 3 -Operative hip swollen; soft tissues supple; no obvious erythema. Ecchymosis minimal. Warmth appropriate -Surgical dressing clean, dry, intact; no obvious drainage, no erythematous streaking peripheral to the bandage. Lidocaine patch in place near the dressing. -Bilateral calves soft and supple; no significant swelling, edema, tenderness, erythema, discoloration, warmth, or palpable cords -2+ DP/PT pulses, intact dermatomes and myotomes distally (5/5 strength). No numbness about the lateral femoral cutaneous nerve distribution. Const Vital Signs, click to edit/add: Vital Signs - 24 hr 04/29/25 17:01 04/29/25 17:10 04/29/25 17:15 Temperature 99.8 F H Pulse Rate 77 75 74 Pulse Rate [Pulse Oximeter] Respiratory Rate 12 14 16 Blood Pressure 137/85 135/82 144/83 H Blood Pressure [Right Arm] Pulse Oximetry 98 100 100 Oxygen Delivery Method OxyMask OxyMask OxyMask Oxygen Flow Rate 10 10 6 04/29/25 17:20 04/29/25 17:25 04/29/25 17:30 Temperature 99.5 F Pulse Rate 68 69 74 Pulse Rate [Pulse Oximeter] Respiratory Rate 16 16 14 Blood Pressure 137/83 138/81 128/81 Blood Pressure [Right Arm] Pulse Oximetry 99 96 95 Oxygen Delivery Method Room Air Room Air Room Air Oxygen Flow Rate 04/29/25 17:35 04/29/25 17:42 04/29/25 18:00 Temperature 99.1 F 97.6 F 97.8 F Pulse Rate 72 Pulse Rate [Pulse Oximeter] 77 77 Respiratory Rate 14 18 20 Blood Pressure 140/79 H Blood Pressure [Right Arm] 146/81 H 137/78 Pulse Oximetry 94 86 L 92 Oxygen Delivery Method Room Air Room Air Nasal Cannula Oxygen Flow Rate 1 04/29/25 18:15 04/29/25 18:19 04/29/25 18:30 Temperature 98.1 F Pulse Rate Pulse Rate [Pulse Oximeter] 73 81 Respiratory Rate 20 18 18 Blood Pressure Blood Pressure [Right Arm] 121/74 105/63 Pulse Oximetry 94 92 94 Oxygen Delivery Method Nasal Cannula Nasal Cannula Nasal Cannula Oxygen Flow Rate 1 1 1 04/29/25 19:00 04/29/25 19:30 04/29/25 22:27 Temperature 97.9 F 97.9 F 97.9 F Pulse Rate Pulse Rate [Pulse Oximeter] 84 84 88 Respiratory Rate 16 16 18 Blood Pressure Blood Pressure [Right Arm] 93/68 120/68 118/64 Pulse Oximetry 95 96 95 Oxygen Delivery Method Nasal Cannula Nasal Cannula Room Air Oxygen Flow Rate 1 1 04/29/25 23:35 04/29/25 23:37 04/30/25 00:17 Temperature 98.5 F 98.5 F Pulse Rate Pulse Rate [Pulse Oximeter] 71 71 Respiratory Rate 16 16 16 Blood Pressure Blood Pressure [Right Arm] 103/61 103/61 Pulse Oximetry 90 90 90 Oxygen Delivery Method Room Air Room Air Room Air Oxygen Flow Rate 0 0 04/30/25 03:20 04/30/25 03:21 04/30/25 07:00 Temperature 98.3 F 98.3 F Pulse Rate Pulse Rate [Pulse Oximeter] 80 80 91 Respiratory Rate 18 18 16 Blood Pressure Blood Pressure [Right Arm] 121/75 121/75 Pulse Oximetry 91 91 Oxygen Delivery Method Room Air Room Air Oxygen Flow Rate 0 04/30/25 07:00 04/30/25 07:00 04/30/25 10:00 Temperature 99.0 F 99.0 F Pulse Rate Pulse Rate [Pulse Oximeter] 91 91 Respiratory Rate 16 16 16 Blood Pressure Blood Pressure [Right Arm] 128/75 128/75 Pulse Oximetry 90 90 90 Oxygen Delivery Method Room Air Room Air Room Air Oxygen Flow Rate 0 Assessment and Plan Assessment and plan (1) Femoral neck fracture: Problem details: - 04/28/2025: Right subcapital femoral neck fracture status post fall from standing position, suggesting underlying osteoporosis - emergency department physician spoke with orthopedic surgery team who indicates they will plan on bringing her to the operating room on 04/29/2025 if the patient is ready for surgery at that time - meanwhile will initiate analgesics and antiemetics p.r.n., NPO after midnight and treat with IV fluids, and await orthopedic surgery consultation - PT and OT consultation. Anticipate patient will need TCU services subsequent to hospitalization. As such have asked social and political studies professor to assist with discharge disposition planning in addition to helping with the alcohol use disorder. Status: Acute (2) Status post hip surgery: Problem details: Right hip bipolar hemiarthroplasty for displaced femoral neck fracture - anterior approach (DOS 04/29/2025 Dr. Bernstein) Status: Acute (3) Alcohol intoxication: Problem details: - 04/28/2025: Blood alcohol level 0.28 with patient coherent and talking suggesting tolerance and underlying alcohol use disorder - patient denies history of alcohol withdrawal symptoms, but family members believe the patient does have alcohol withdrawal symptoms that she self medicates with alcohol. - in-hospital will monitor and employ CIWA protocol as indicated, give a single dose of phenobarbital 260 mg IV, initiate gabapentin 300 mg p.o. b.i.d. to lower risk of alcohol withdrawal, initiate multivitamin, folate, thiamin Status: Acute (4) Acute hypoxic respiratory failure: Problem details: -mild needing 1 liter/minute oxygen, likely secondary to medications opioid plus phenobarb. - Patient denies history of COPD or using any inhalers, she denies history of CHRISTINA or using CPAP. -No history of heart disease. -Pt is not tachycardic. -continue monitoring. Status: Acute (5) Osteoporosis: Problem details: - 04/28/2025: This is a presumptive diagnosis given that she fell from the standing position and sustained a major fracture to her hip. In-hospital will initiate intranasal calcitonin 200 IU alternating nostrils every other day for a total of 1 month only. Thereafter she will need to have outpatient follow-up with her primary care physician for additional diagnostic and interventional effort considerations. Status: Acute (6) Constipation: Problem details: - 04/28/2025: Will initiate senna 1 tab p.o. b.i.d. in-hospital and monitor and adjust as warranted Status: Acute (7) Alcohol use disorder: Problem details: - 04/28/2025: Initiated discussion with patient regarding this diagnosis. Indicated that like many illnesses she did not cause herself to have this illness, but she obviously does suffer from this illness, and she needs to be the 1 to decide that she wants to further assess and treat this and manage this. I also indicated that we do not have a cure for this but we do have means of helping her help herself if she so desires. - social and political studies professor consultation to assist with recommendations for assessment and treatment Status: Acute (8) Tobacco use disorder: Problem details: - 04/28/2025: In-hospital will initiate nicotine transdermal patch therapy Status: Acute Plan - Complete 23 hour perioperative antibiotics. - PT/OT consult for education and assistance. - Social work consult for discharge planning - Prescribed analgesics as needed - add Vistaril for discharge to help with pain management. - DVT prophylaxis: Rivaroxaban 5 days, followed by 81 mg aspirin by mouth twice daily for 25 days, walking, and SCDs - Anticipation is for discharge to home with family today 04/30/2025 if the patient remains medically stable, pain is controlled, and they are safe with mobilization. Per my discussion with patient, it appears that she will plan to go home with her son who can help her recover. She states that he helped with her right patellar fracture ORIF recovery at their home August of 2024.
--- NOTE | 2025-04-30 12:25 | PC.NURSE ---
Discharge: Patient a/o, VSS. pt rates pain 5/10 PRN oxy and tylenol administered w/relief. Patient's catheter removed tip intact. Patient voided x2 successfully after removal. Patients family updated on discharge plan. Sister Clarissa updated. Patient cleared for discharge by OT/PT. Discharged to home today at 1200 accompanied by son West. Discharge instructions given and signed. patient and son verbalized understanding. Belongings sheet signed. IV removed tip intact.
== END 2025-04-30 12:00 | disposition home or self-care (01) | DRG 301 ==
LOC: ED 21:01 → MEDSURG 21:30
PROVIDERS: Orthopaedic Surgery Sports Medicine; Student in an Organized Health Care Education/Training Program; Admitting Provider Internal Medicine; Emergency Provider Family Medicine; PCP Family Medicine; Visit Provider Internal Medicine
PROC: 0SRR01A Replacement of Right Hip Joint, Femoral Surface with Metal Synthetic Substitute, Uncemented, Open Approach (ICD-10-PCS; principal; 2025-04-29 14:15)
DX: S72.011A Unspecified intracapsular fracture of right femur, initial encounter for closed fracture (principal); J96.01 Acute respiratory failure with hypoxia; G89.18 Other acute postprocedural pain; F10.129 Alcohol abuse with intoxication, unspecified; Y90.8 Blood alcohol level of 240 mg/100 ml or more; M81.0 Age-related osteoporosis without current pathological fracture; K59.00 Constipation, unspecified; W01.0XXA Fall on same level from slipping, tripping and stumbling without subsequent striking against object, initial encounter; F17.210 Nicotine dependence, cigarettes, uncomplicated
CPT/HCPCS: 01230; 36415; 51701; 64450; 71045; 73501; 73502; 76000; 76942; 80048; 80053; 80076; 81001; 82077; 82803; 83605; 83735; 84100; 84443; 85025; 85027; 86140; 93005; 97110; 97116; 97161; 97165; 97530; 97535; 99140; 99284; 99285; A9153; A9270; C1776; J0665; J0690; J2250; J2270; J2371; J2405; J2560; J2704; J3475; J3490; J7120